=== PATIENT | female | born 1985 | race Caucasian/White ===

== ENCOUNTER 2023-01-10 07:12 | Inpatient (IN) | payer OTHER ==
[2023-01-10] MEDS ORDERED: Sodium Chloride 0.9% 20 ML SDV IV PRN (08:26)
[2023-01-10] MEDS ORDERED: Sodium Chloride 0.9% 10 ML Syringe FLUSH PRN (08:26)
[2023-01-10] MEDS ORDERED: Methylergonovine 0.2 MG/1 ML Amp IM PRN (08:26)
[2023-01-10] MEDS ORDERED: Tranexamic Acid 1,000 MG in Sodium Chloride 0.9% 100 ML IV PRN (08:26)
[2023-01-10] MEDS ORDERED: Water For Irrigation,Sterile 1,000 ML Container IRR PRN (08:26)
[2023-01-10] MEDS ORDERED: Carboprost Tromethamine 250 MCG/1 ML Amp IM PRN (08:26)
[2023-01-10] MEDS ORDERED: Terbutaline 1 MG/ML SDV SUBCUT PRN (08:26)
[2023-01-10] MEDS ORDERED: Lidocaine 1% 50 ML MDV INJECT PRN (08:26)
[2023-01-10] MEDS ORDERED: Butorphanol 1 MG/ML SDV IVPUSH PRN (08:26)
[2023-01-10] MEDS ORDERED: Misoprostol 200 MCG Tab PO PRN (08:26)
[2023-01-10] MEDS ORDERED: Misoprostol 25 MCG (1/4 of 100 MCG) Tab VAG PRN ×2 (08:26)
[2023-01-10] MEDS ORDERED: Sodium Chloride 0.9% 2.5 ML Syringe FLUSH PRN (08:26)
[2023-01-10] MEDS ORDERED: Oxytocin/0.9 % Sodium Chloride 30 UNIT/500 ML BAG IV SCH ×2 (08:30)
[2023-01-10] MEDS ORDERED: Lactated Ringers 1,000 ML IV SCH (08:30)
[2023-01-10] MEDS ORDERED: Benzocaine/Menthol 20%-0.5% Spray 78 GM Cannister TOP PRN (19:33)
[2023-01-10] MEDS ORDERED: Lanolin 100% Cream 7 GM Tube TOP PRN (19:33)
[2023-01-10] MEDS ORDERED: Ibuprofen 400 MG Tab PO PRN (19:33)
[2023-01-10] MEDS ORDERED: Witch Hazel Medicated Pads 40/Jar TOP PRN (19:33)
[2023-01-10] MEDS ORDERED: Acetaminophen 500 MG Tab PO PRN (19:33)
[2023-01-10] MEDS ORDERED: oxyCODONE 5 MG Tab PO PRN (19:33)
[2023-01-10] MEDS ORDERED: Bisacodyl 10 MG Supp RECTAL PRN (19:33)
[2023-01-10] MEDS ORDERED: Docusate Sodium 100 MG Cap PO PRN (19:33)
[2023-01-10] MEDS ORDERED: Ibuprofen 800 MG Tab PO PRN (19:33)
[2023-01-10] MEDS: Acetaminophen 500 MG Tab PO PRN (21:24)
[2023-01-11] MEDS: Acetaminophen 500 MG Tab PO PRN ×2 (02:17→09:02)
[2023-01-11 07:40] LABS: CARBON DIOXIDE,CO2 24.4 mmol/L (21.0-32.0); POTASSIUM,K 3.8 mmol/L (3.5-5.1)
[2023-01-11] MEDS ORDERED: Enoxaparin 40 MG/0.4 ML Syringe SUBCUT SCH (09:00)
== END 2023-01-11 21:15 | disposition home or self-care (01) | DRG 807 ==
LOC: MW.OB 07:12 → OBSVTOIN 19:09 → MW.OB 19:09
PROVIDERS: ADMIT Obstetrics & Gynecology; ATTEND Obstetrics & Gynecology
PROC: 10E0XZZ Delivery of Products of Conception, External Approach (ICD-10-PCS; principal; 2023-01-10)
PROC: 0HQ9XZZ Repair Perineum Skin, External Approach (ICD-10-PCS; 2023-01-10)
PROC: 10907ZC Drainage of Amniotic Fluid, Therapeutic from Products of Conception, Via Natural or Artificial Opening (ICD-10-PCS; 2023-01-10)
PROC: 3E0P7VZ Introduction of Hormone into Female Reproductive, Via Natural or Artificial Opening (ICD-10-PCS; 2023-01-10)
DX: O43.123 Velamentous insertion of umbilical cord, third trimester (principal); Z37.0 Single live birth; O70.0 First degree perineal laceration during delivery; Z3A.39 39 weeks gestation of pregnancy; Z86.718 Personal history of other venous thrombosis and embolism
CPT/HCPCS: 36415; 59025; 59409; 80048; 82803; 85014; 85018; 85027; 86592; 86850; 86900; 86901; A9270-GY; J1650; J2001; J2590; J7120

== ENCOUNTER 2023-01-26 03:18 | Emergency (ER) | payer OTHER ==
[2023-01-26] MEDS ORDERED: Acetaminophen 500 MG Tab PO ONE (03:32)
[2023-01-26 03:36] LABS: BASOPHILS PERCENT AUTO 0.6 % (0.0-1.5); EOSINOPHILS ABSOLUTE AUTO 0.3 K/uL (0.0-0.7); EOSINOPHILS PERCENT AUTO 4.5 % (0.0-7.0); HEMATOCRIT 38.9 % (36.0-46.0); HEMOGLOBIN 12.8 g/dL (12.0-16.0); LYMPHOCYTES ABSOLUTE AUTO 3.1 K/uL (0.6-2.4); LYMPHOCYTES PERCENT AUTO 42.8 % (16.0-40.0); MEAN CORPUSCULAR HGB CONC 32.9 g/dL (31.0-37.0); MEAN CORPUSCULAR VOLUME 91.3 fL (80.0-98.0); MONOCYTES ABSOLUTE AUTO 0.5 K/uL (0.0-0.8); MONOCYTES PERCENT AUTO 6.9 % (0.0-15.0); NEUTROPHILS ABSOLUTE AUTO 3.2 K/uL (1.4-5.7); NEUTROPHILS PERCENT AUTO 45.2 % (48.0-80.0); NRBC ABSOLUTE 0 K/uL; PLATELET COUNT,PLT 303 K/uL (150-400); RED BLOOD CELL COUNT 4.26 M/uL (4.30-5.90); WHITE BLOOD CELL COUNT,WBC 7.13 K/uL (4.0-11.0)
[2023-01-26] MEDS ORDERED: Aspirin 81 MG Tab.Chew PO ONE (03:37)
[2023-01-26] MEDS: Nitroglycerin 0.4 MG Tab.SL SL PRN ×3 (03:42→03:57)
[2023-01-26 03:43] LABS: INR < 0.93 (0.86-1.11)
[2023-01-26 03:55] LABS: A/G RATIO 0.8 (0.9-1.6); ALBUMIN 3.3 g/dL (3.4-5.0); BILIRUBIN TOTAL 0.3 mg/dL (0.2-1.0); CALCIUM 8.5 mg/dL (8.5-10.1); CARBON DIOXIDE,CO2 30.8 mmol/L (21.0-32.0); CREATININE 0.8 mg/dL (0.6-1.0); EST CRCL DRUG DOSING (CG) 96.18 mL/min; POTASSIUM,K 3.3 mmol/L (3.5-5.1); PROTEIN TOTAL,TP 7.3 g/dL (6.4-8.2)
[2023-01-26] MEDS ORDERED: Heparin Sodium 5,000 Units/ML Vial IVPUSH ONE (04:06)
[2023-01-26] MEDS ORDERED: Heparin Sodium/0.45% NaCl 500 ML IV SCH ×2 (04:15→05:45)
[2023-01-26] MEDS ORDERED: Iopamidol 755 MG/ML 500 ML Multipack Bottle IVPUSH STA (04:21)
[2023-01-26] MEDS ORDERED: Nitroglycerin/D5W 25 MG/250 ML BOTTLE IV SCH (06:15)
== END 2023-01-26 09:04 ==
LOC: MW.ED 03:18
DX: O99.43 Diseases of the circulatory system complicating the puerperium (principal); I21.4 Non-ST elevation (NSTEMI) myocardial infarction
CPT/HCPCS: 36415; 71275; 80053; 83690; 84484; 85025; 85610; 85730; 93005; 96365; 96366; 96368; 96376; 99285; A9270; J1644; J3490; Q9967; 93010; 99284